=== PATIENT | female | born 1995 | race Two or more races ===

== ENCOUNTER 2022-07-05 10:47 | Emergency (ER) | payer BC, SELFPAY ==
[2022-07-05 11:42] VITALS: BP 140/92; PULSE 79; RESP 18; TEMP 36.4; O2SAT 98; BMI 40.7
--- NOTE | 2022-07-05 12:00 | ED.PSYCH ---
HPI - Psych General Chief Complaint: Psychiatric Symptoms Stated Complaint: depression Time Seen by Provider: 07/05/22 11:48 Source: patient Mode of arrival: ambulatory Limitations: no limitations History of Present Illness HPI Narrative: 26-year-old female here with depression. Patient states she has had depression her entire life. She is looking to get some outpatient resources to help her with this. She denies any suicidal homicidal ideations. No substance use. No physical complaints MD complaint: feels depressed Related Data Allergies Allergy/AdvReac Type Severity Reaction Status Date / Time No Known Allergies Allergy Verified 07/05/22 11:41 Review of Systems Review of Systems: Yes all other systems are reviewed and are negative Constitutional: Constitutional: Reports no additional constitutional complaints, Denies body ache(s), Denies chills, Denies fever(s), Denies headache(s) and Denies weakness Eyes: Eyes: Reports no additional eye complaints and Denies change in vision ENT: Reports system reviewed and no additional complaints, except as documented, Denies dizziness, Denies headache(s), Denies nasal congestion, Denies nasal discharge and Denies neck pain Cardiovascular: Cardiovascular: Reports no additional cardiovascular complaints, Denies chest pain, Denies leg edema and Denies dyspnea Respiratory: Respiratory: Reports no additional respiratory complaints, Denies cough and Denies dyspnea Gastrointestinal: Gastrointestinal: Reports no additional gastrointestinal complaints, Denies abdominal pain, Denies diarrhea, Denies nausea and Denies vomiting Genitourinary: Genitourinary: Reports no additional female genitourinary complaints and Denies urinary incontinence Musculoskeletal: Musculoskeletal: Reports no additional musculoskeletal complaints, Denies back pain, Denies arthralgias, Denies joint swelling, Denies neck pain, Denies numbness and Denies tingling Integumentary/Breasts: Skin/Breast: Reports system reviewed and no additional complaints, except as docu and Denies rash Neurologic: Reports system reviewed and no additional complaints, except as documented, Denies Abnormal speech present, Denies dizziness, Denies headache(s), Denies numbness, Denies tingling and Denies weakness Psychiatric: Psychiatric: Denies anxiety, Reports depression, Denies homicidal ideation and Denies suicidal ideation [facility] Past Medical History Attestation statement: The following information was validated with the patient. Source: old records reviewed and nursing notes reviewed Social History Social History Advance Directives: No Physical Exam Vital Signs: Vital Signs: Last Vital Signs Temp 97.6 F 07/05/22 11:42 Pulse 79 07/05/22 11:42 Resp 18 07/05/22 11:42 BP 140/92 H 07/05/22 11:42 Pulse Ox 98 07/05/22 11:42 O2 Del Method 07/05/22 11:42 BMI result Body Mass Index 40.7 Const: General: cooperative, healthy appearing, comfortable and no acute distress Orientation/consciousness: patient oriented x3 Limitations: no limitations HEENT: Head: Yes normal to inspection Ears: hearing grossly normal bilaterally General nose exam: Normal external nose present Face and sinus: Yes normal facial exam Mouth: Normal oral and palatal mucosa present Throat: Yes posterior oropharynx normal Eyes: General: appearance normal, both eyes and all related structures Pupils: Equal, round and reactive pupils present Neck: Neck: Yes normal visual inspection Chest: Chest palpation & inspection: normal inspection of the chest Resp: Effort & Inspection: normal respiratory effort Auscultation: clear to auscultation bilaterally Cardio: Rate: regular rate Rhythm: regular rhythm Peripheral pulses: Peripheral pulses 2+ throughout GI: Inspection: Yes normal to inspection Palpation (GI): Soft to palpation and nontender Auscultation: normal bowel sounds Back/Spine/Pelvis: Thoracic/Lumbar Spine: thoracic and lumbar spine normal to inspection Skin: General skin exam: no rashes or lesions noted Neuro: General: patient oriented x3, no focal motor deficits and normal sensation to monofilament Cranial nerves: Yes CN's II-XII intact bilaterally and Yes Equal, round and reactive pupils present Cognition (Neuro): normal cognition Speech: No Abnormal speech present Gait exam (Neuro): Normal gait present Motor exam (neuro): 5/5 motor strength present throughout Extrem: General: Yes normal to inspection Course Course Course Narrative: Patient seen by care team. Plan for discharge home with outpatient resources. MDM - Psych MDM Narrative Medical decision making narrative: 26-year-old female here with depression. No SI or HI. No concern for acute ingestion or trauma. No physical complaints. Will involve care team Medical Records Attestation: I reviewed the patient's medical records. Lab Data Attestation: I reviewed the patient's lab results. Discharge Plan Discharge Clinical Impression: Depression Patient Disposition: Home, Self-Care Instructions: Depression (ED) Additional Instructions: Follow-up with outpatient resources provided by care team Referrals: Physician,None [Primary Care Provider] -
--- NOTE | 2022-07-05 19:16 | MHC.CARE ---
1400 CARE Team responded to consult request to speak to this 26 year-old Japanese speaking, female who was brought to the ED by her parents to get resources for her depression. She was seated in a medical chair in [facility], alert, oriented, easily engaged n. Patient appeared her stated age, maintained appropriate eye contact, was soft spoken and appeared to be open about her depressive symptoms. She is unable to work, is socially anxious, does not have a class a regional drivers?s license, all her friends are through a virtual game (though she did just have a vacation with them), has gained weight due to her inactivity, her parents are worried and brought her to the ED to get some resources. Patient is not on medication, has never been in therapy, she denied suicidal ideation, plan or intention and has no history of attempts or gestures. Patient acknowledged that things are not going well and the only intervention she is willing to accept is outpatient therapy but virtually. She declined referral to [facility] but accepted information regarding the program, advised that the [facility] program is virtual. Reviewed grounding, mindfulness and breathing exercises and provided written information about these techniques, patient was receptive. She is not having a crisis and does not need an inpatient psychiatric hospitalization and expressed a willingness to accept help at this time and motivated to feel better. CARE Team will research therapist who are online and accept her insurance, also will provide a follow up call within the next two days. ED provider, Betina Bravo NP updated with plan of care.
--- NOTE | 2022-07-06 16:39 | MHC.CARE ---
Patient referred to a therapist who does telehealth appointments. The provider will send her an intake form.
--- NOTE | 2022-07-06 20:01 | MHC.CARE ---
Care Team left a voice message for pt's father Dewey Stewart. Purpose of call was to notify pt that she was referred to a therapist who does telehealth appointments and the provider will send her the intake form.
== END 2022-07-05 15:29 | disposition home or self-care (01) ==
PROVIDERS: Emergency Provider Emergency Medicine
DX: F33.1 Major depressive disorder, recurrent, moderate (principal)
CPT/HCPCS: 99283